=== PATIENT | female | born 1955 | race Caucasian/White ===

== ENCOUNTER → 2017-06-11 | Outpatient (CLI) | payer BC ==
[~2017-06-11] MED LIST: ALBU90AE IH; APIX2.5T PO; CALC600T12 PO; CLON1TAB23 PO; DOXA2TAB2 PO; FLUTICASONE IH; HYDR-309 PO; LOSA100T29 PO; METO25TA6 PO; MULT-1192 PO; TORS20TA4 PO
== END | disposition home or self-care (01) ==
LOC: RAH 10:00
PROVIDERS: ATTEND Physical Medicine & Rehabilitation
DX: M25.561 Pain in right knee (principal)
CPT/HCPCS: 73562

== ENCOUNTER 2017-08-09 07:14 | Observation (INO) | payer BC ==
[2017-08-06 16:04] VITALS: BP 151/58
[2017-08-06 16:19] LABS: BASOPHILS % (AUTO) 0.4 % (0.0-5.0); EOSINOPHILS % (AUTO) 1.5 % (0.0-8.0); HEMATOCRIT 40.4 % (36-48); MEAN CORPUSCULAR HEMOGLOBIN 32.3 pg (27.0-33.0); MEAN CORPUSCULAR HGB CONC 34.4 g/dL (32.0-36.0); MEAN CORPUSCULAR VOLUME 93.9 fL (79-99); MONOCYTES % (AUTO) 10.1 % (3.0-13.0); PLATELET COUNT (AUTO) 270 K/uL (130-400); RED CELL DISTRIBUTION WIDTH 12.5 % (11.0-15.5); WHITE BLOOD COUNT (AUTO) 7.6 K/uL (4.8-10.8)
[2017-08-06 16:24] LABS: APPEARANCE,URINE Clear (CLEAR); BILIRUBIN,URINE Negative (NEGATIVE); COLOR,URINE Yellow (YELLOW); GLUCOSE, URINE (UA) Negative (NEGATIVE); KETONES,URINE Negative (NEGATIVE); LEUKOCYTE ESTERASE ,URINE Negative (NEGATIVE); NITRATE,URINE Negative (NEGATIVE); OCCULT BLOOD,URINE Negative (NEGATIVE); PROTEIN,URINE Negative (NEGATIVE); UROBILINOGEN,URINE 0.2 mg/dL (0.2-1.0)
[2017-08-06 16:26] LABS: CREATININE 0.9 mg/dL (0.5-1.5); POTASSIUM 3.6 mmol/L (3.5-5.1)
[2017-08-06 16:30] LABS: INR 0.92 (0.85-1.15); PARTIAL THROMBOPLASTIN TIME 26.5 SEC (26.3-35.5); PROTHROMBIN TIME 9.7 SEC (9.6-11.6)
[2017-08-09] VITALS (21 sets, daily range): BP systolic 128–160; BP diastolic 50–84
[~2017-08-09] VITALS: Ht 172.7 cm; Wt 86.9 kg
[~2017-08-09 07:14] MED LIST changes: -APIX2.5T PO; -HYDR-309 PO
[2017-08-09] MEDS ORDERED: LACTATED RINGERS 1000ML 1,000 ML IV ONE (07:39)
[2017-08-09] MEDS: CEFAZOLIN SODIUM 1 GM VIAL ONE ×2 (07:49→08:41)
[2017-08-09] MEDS ORDERED: ACETAMINOPHEN EXTRA STRENGTH 500 MG TABLET ONE (08:07)
[2017-08-09] MEDS ORDERED: CELECOXIB 200 MG CAP ONE (08:07)
[2017-08-09] MEDS ORDERED: KETOROLAC TROMETHAMINE 15MG/ML ONE (08:07)
[2017-08-09] MEDS ORDERED: OXYCODONE HCL 10 MG TAB.SR.12H PO ONE (08:08)
[2017-08-09] MEDS ORDERED: CEFAZOLIN SODIUM 1 GM VIAL ONE (08:10)
[2017-08-09] MEDS ORDERED: TRANEXAMIC ACID 1000MG/10ML IV ONE (08:10)
[2017-08-09] MEDS ORDERED: SCOPOLAMINE HYDROBROMIDE 1 EACH ADH..PATCH TD ONE (08:18)
[2017-08-09] MEDS ORDERED: GLYCOPYRROLATE 0.2 MG/ML 5 ML VIAL ONE (08:25)
[2017-08-09] MEDS ORDERED: PROPOFOL 10 MG/ML 20ML VIAL IV ONE (08:25)
[2017-08-09] MEDS ORDERED: LIDOCAINE PF 2% 5ML ABBOJECT ONE (08:25)
[2017-08-09] MEDS ORDERED: DEXAMETHASONE SOD PHOSPHATE 10MG/ML 1ML VIAL ONE (08:25)
[2017-08-09] MEDS ORDERED: MIDAZOLAM HCL 1 MG/ML 2ML VIAL ONE (08:26)
[2017-08-09] MEDS ORDERED: FENTANYL CITRATE PF 50 MCG/1 ML 2ML VIAL ONE (08:26)
[2017-08-09] MEDS ORDERED: ROPIVACAINE 0.5% 5MG/ML 30ML IJ ONE (08:34)
[2017-08-09] MEDS ORDERED: EPINEPHRINE 1 MG/ML AMPULE ONE (08:54)
[2017-08-09] MEDS ORDERED: BUPIVACAINE/PF 0.25% 30ML VIAL IJ ONE (08:55)
[2017-08-09] MEDS ORDERED: CALCIUM CARBONATE 500 MG TABLET PO PRN (10:30)
[2017-08-09] MEDS ORDERED: DiphenhydrAMINE HCL 50 MG/ML VIAL IVP PRN (10:30)
[2017-08-09] MEDS ORDERED: POTASSIUM CHLORIDE 20MEQ/100ML 100 ML IV PRN (10:30)
[2017-08-09] MEDS ORDERED: TRAMADOL HCL 50 MG TABLET PO PRN (10:30)
[2017-08-09] MEDS ORDERED: ONDANSETRON HCL 4 MG/2 ML VIAL IVP PRN (10:30)
[2017-08-09] MEDS ORDERED: POTASSIUM CHLORIDE 20 MEQ ERTAB PO PRN (10:30)
[2017-08-09] MEDS ORDERED: FERROUS FUMARATE 324 MG TABLET PO PRN (10:30)
[2017-08-09] MEDS ORDERED: POTASSIUM CHLORIDE 10% ELIXIR 20 MEQ/15 ML UDCUP PO PRN (10:30)
[2017-08-09] MEDS: ACETAMINOPHEN EXTRA STRENGTH 500 MG TABLET PO SCH ×2 (10:30→18:21)
[2017-08-09] MEDS ORDERED: OXYCODONE HCL 5 MG TAB PO PRN ×2 (10:30)
[2017-08-09] MEDS ORDERED: TEMAZEPAM 15 MG CAPSULE PO PRN (10:30)
[2017-08-09] MEDS ORDERED: LIDOCAINE HCL-MPF 1% 2ML VIAL IVP PRN (10:30)
[2017-08-09] MEDS ORDERED: MORPHINE SULFATE 4 MG/1ML SYG ONE (10:57)
[2017-08-09] MEDS ORDERED: ALBUTEROL SULFATE IH PRN (12:30)
[2017-08-09] MEDS: SODIUM CHLORIDE 0.9% 1000ML 1,000 ML IV SCH ×2 (15:28→23:48)
[2017-08-09] MEDS: CLINDAMYCIN 900 MG/D5% WATER 50 ML IVPB SCH ×2 (16:12→23:48)
[2017-08-09] MEDS ORDERED: ASPIRIN 325 MG TABLET PO SCH (21:00)
[2017-08-09] MEDS ORDERED: CLONAZEPAM 1 MG TABLET PO SCH (21:00)
[2017-08-09] MEDS: PREGABALIN 25 MG CAP PO SCH (21:20)
[2017-08-09] MEDS: METOPROLOL TARTRATE 25 MG TAB PO SCH (21:20)
[2017-08-09] MEDS: FAMOTIDINE 20MG TAB 20 MG TAB PO SCH (21:20)
[2017-08-09] MEDS: FLUTICASONE PROPIONATE 50MCG/SPRAY 16 GM BOTTLE NS SCH (21:21)
[2017-08-10] VITALS: BP 130/57
[2017-08-10] MEDS: ACETAMINOPHEN EXTRA STRENGTH 500 MG TABLET PO SCH ×2 (02:38→10:12)
[2017-08-10 04:00] VITALS: BP 148/74
[2017-08-10] MEDS: SODIUM CHLORIDE 0.9% 1000ML 1,000 ML IV SCH (05:23)
[2017-08-10 05:30] LABS: HEMATOCRIT 34.7 % (36-48); MEAN CORPUSCULAR HEMOGLOBIN 33.9 pg (27.0-33.0); MEAN CORPUSCULAR HGB CONC 35.8 g/dL (32.0-36.0); MEAN CORPUSCULAR VOLUME 94.6 fL (79-99); PLATELET COUNT (AUTO) 216 K/uL (130-400); RED BLOOD CELL COUNT(AUTO) 3.67 MIL/uL (4.00-5.50); RED CELL DISTRIBUTION WIDTH 12.7 % (11.0-15.5); WHITE BLOOD COUNT (AUTO) 10.3 K/uL (4.8-10.8)
[2017-08-10 05:47] LABS: CREATININE 0.8 mg/dL (0.5-1.5); POTASSIUM 4.2 mmol/L (3.5-5.1)
[2017-08-10 07:29] VITALS: BP 154/62
[2017-08-10] MEDS ORDERED: CALCIUM CARBONATE 500 MG TABLET PO SCH (09:00)
[2017-08-10] MEDS ORDERED: LOSARTAN 100 MG TABLET PO SCH (09:00)
[2017-08-10] MEDS ORDERED: MULTIVITAMIN TABLET PO SCH (09:00)
[2017-08-10] MEDS ORDERED: DOXAZOSIN MESYLATE 2 MG TABLET PO SCH (09:00)
[2017-08-10] MEDS ORDERED: TORSEMIDE 20 MG TAB PO SCH (09:00)
[2017-08-10] MEDS ORDERED: POLYETHYLENE GLYCOL 3350 17 GM POWD.PACK PO SCH (09:00)
[2017-08-10] MEDS: FLUTICASONE PROPIONATE 50MCG/SPRAY 16 GM BOTTLE NS SCH (09:05)
[2017-08-10] MEDS: METOPROLOL TARTRATE 25 MG TAB PO SCH (09:05)
[2017-08-10] MEDS: PREGABALIN 25 MG CAP PO SCH (09:05)
[2017-08-10] MEDS: FAMOTIDINE 20MG TAB 20 MG TAB PO SCH (09:05)
[2017-08-10 11:21] VITALS: BP 159/69
[2017-08-10 16:25] VITALS: BP 153/70
[2017-08-10] MEDS ORDERED: APIX2.5T PO (17:08)
[2017-08-10] MEDS ORDERED: HYDR-309 PO (17:08)
[2017-08-10] MEDS ORDERED: APIXABAN 2.5 MG TABLET PO ONE (18:30)
[2017-08-12] MEDS ORDERED: BISACODYL 10 MG SUPP.RECT RC PRN (10:30)
== END 2017-08-10 19:02 | disposition home health service (06) ==
LOC: INTOOBSV 07:14 → DAHIP 07:14 → 4AH 11:46 → EDSTATUS 16:30
PROVIDERS: ADMIT Orthopaedic Surgery; ATTEND Orthopaedic Surgery
DX: M25.461 Effusion, right knee (principal); G89.29 Other chronic pain; I10 Essential (primary) hypertension; M19.90 Unspecified osteoarthritis, unspecified site; Z82.49 Family history of ischemic heart disease and other diseases of the circulatory system; Z80.3 Family history of malignant neoplasm of breast; Z79.899 Other long term (current) drug therapy
CPT/HCPCS: 27486; 36415 ×2; 80048 ×2; 81003; 85025; 85027; 85610; 85730; 88300; 88305; 88312; 96365; 96366; 96375; 97116 ×3; 97161; 97530 ×2; A4218; A4649 ×5; A4930 ×2; A9272; C1763; C1776 ×2; G0378 ×37; G8978; G8979; G8980; G8981; G8982; G8983; J0171; J0690 ×2; J1100; J1885; J2001; J2250; J2270; J2405; J2704; J2795; J3010; J3490 ×5; J7030 ×2; J7120; 96374

== ENCOUNTER 2021-03-24 10:00 | Observation (INO) | payer MEDICARE ==
[~2021-03-24] VITALS: Ht 175.3 cm; Wt 86.3 kg
[~2021-03-24 10:00] MED LIST changes: +CALC-1125 PO; -CALC600T12 PO; -LOSA100T29 PO; +LOSA100T58 PO; -MULT-1192 PO
[2021-03-24 10:39] LABS: APPEARANCE,URINE Clear (CLEAR); BILIRUBIN,URINE Negative (NEGATIVE); COLOR,URINE Yellow (YELLOW); GLUCOSE, URINE (UA) Negative (NEGATIVE); KETONES,URINE Negative (NEGATIVE); LEUKOCYTE ESTERASE ,URINE Negative (NEGATIVE); NITRATE,URINE Negative (NEGATIVE); OCCULT BLOOD,URINE Negative (NEGATIVE); PH,URINE 5.5 (5.0-8.0); PROTEIN,URINE Negative (NEGATIVE)
[2021-03-24 10:45] LABS: BASOPHILS % (AUTO) 0.3 % (0.0-5.0); EOSINOPHILS % (AUTO) 2.5 % (0.0-8.0); HEMATOCRIT 40.5 % (36-48); LYMPHOCYTES % (AUTO) 27.9 % (21.0-51.0); MEAN CORPUSCULAR HEMOGLOBIN 32.7 pg (27.0-33.0); MEAN CORPUSCULAR HGB CONC 35.3 g/dL (32.0-36.0); MEAN CORPUSCULAR VOLUME 92.7 fL (79-99); MONOCYTES % (AUTO) 13.5 % (3.0-13.0); NEUTROPHILS % (AUTO) 55.7 % (40.0-77.0); PLATELET COUNT (AUTO) 242 K/uL (130-400); RED BLOOD CELL COUNT(AUTO) 4.37 MIL/uL (4.00-5.50); RED CELL DISTRIBUTION WIDTH 12.5 % (11.0-15.5); WHITE BLOOD COUNT (AUTO) 7.5 K/uL (4.8-10.8)
[2021-03-24 10:54] LABS: CREATININE 0.9 mg/dL (0.5-1.5); POTASSIUM 3.7 mmol/L (3.5-5.1)
[2021-03-24 10:56] LABS: INR 0.96 (0.85-1.15); PROTHROMBIN TIME 10.5 SEC (9.6-11.6)
[2021-03-25 11:31] VITALS: BP 155/59
[2021-03-25] MEDS ORDERED: CHOL500051 PO (12:29)
[2021-03-25] MEDS ORDERED: CETI10CA5 PO (12:29)
[2021-03-25] MEDS ORDERED: ANAS1TAB49 PO (12:29)
[2021-03-26] VITALS (29 sets, daily range): BP systolic 101–150; BP diastolic 46–70
[2021-03-26] MEDS ORDERED: LACTATED RINGERS 1000ML 1,000 ML IV ONE (06:40)
[2021-03-26] MEDS ORDERED: CEFAZOLIN SODIUM 1 GM VIAL ONE (07:48)
[2021-03-26] MEDS ORDERED: SCOPOLAMINE HYDROBROMIDE 1 EACH ADH..PATCH TD ONE (07:55)
[2021-03-26] MEDS: CEFAZOLIN SODIUM 1 GM VIAL ONE ×2 (08:03→08:57)
[2021-03-26] MEDS ORDERED: TRANEXAMIC ACID 1000MG/10ML ONE ×2 (08:21→10:43)
[2021-03-26] MEDS ORDERED: MIDAZOLAM HCL 1 MG/ML 2ML VIAL ONE (08:25)
[2021-03-26] MEDS ORDERED: SUCCINYLCHOLINE CHLORIDE 20 MG/ML 10 ML VIAL ONE (08:25)
[2021-03-26] MEDS ORDERED: LIDOCAINE PF 100MG/5ML (2%) SYRINGE 5ML ONE (08:25)
[2021-03-26] MEDS ORDERED: PROPOFOL 10 MG/ML 20ML VIAL IV ONE (08:25)
[2021-03-26] MEDS ORDERED: ROCURONIUM 10MG/1ML SYR 10 MG/ML ML ONE (08:25)
[2021-03-26] MEDS ORDERED: FENTANYL CITRATE PF 50 MCG/1 ML 2ML VIAL ONE (08:26)
[2021-03-26] MEDS ORDERED: SCOPOLAMINE HYDROBROMIDE 1 EACH ADH..PATCH TD SCH (08:30)
[2021-03-26] MEDS ORDERED: ROPIVACAINE 0.5% 5MG/ML 30ML IJ ONE (08:40)
[2021-03-26] MEDS ORDERED: DEXAMETHASONE SOD PHOSPHATE 10MG/ML 1ML VIAL ONE (08:41)
[2021-03-26] MEDS ORDERED: CEFAZOLIN SODIUM 3 GM VIAL IV ONE (09:21)
[2021-03-26] MEDS ORDERED: GLYCOPYRROLATE 1 MG/5 ML SYRINGE ONE ×2 (09:31→10:38)
[2021-03-26] MEDS ORDERED: EPHEDRINE SULFATE 50 MG/ML AMPULE ONE (09:32)
[2021-03-26] MEDS: ACETAMINOPHEN 500 MG TABLET PO SCH ×2 (10:30→19:56)
[2021-03-26] MEDS ORDERED: OXYCODONE HCL 5 MG TAB PO PRN ×2 (10:30)
[2021-03-26] MEDS ORDERED: DiphenhydrAMINE HCL 50 MG/ML VIAL IVP PRN (10:30)
[2021-03-26] MEDS ORDERED: KETOROLAC 15MG/ML VIAL (15MG/ML) IV PRN (10:30)
[2021-03-26] MEDS ORDERED: CALCIUM CARB 500MG PO PRN (10:30)
[2021-03-26] MEDS ORDERED: ONDANSETRON 4MG INJ IVP PRN (10:30)
[2021-03-26] MEDS ORDERED: TEMAZEPAM 15 MG CAPSULE PO PRN (10:30)
[2021-03-26] MEDS ORDERED: TRAMADOL HCL 50 MG TABLET PO PRN (10:30)
[2021-03-26] MEDS ORDERED: POTASSIUM CHLORIDE 20MEQ/100ML 100 ML IV PRN (10:30)
[2021-03-26] MEDS ORDERED: POTASSIUM CHLORIDE 10% ELIXIR 20 MEQ/15 ML UDCUP PO PRN (10:30)
[2021-03-26] MEDS ORDERED: LIDOCAINE HCL-MPF 1% 2ML VIAL IV PRN (10:30)
[2021-03-26] MEDS ORDERED: KCL 20 MEQ ERTAB PO PRN (10:30)
[2021-03-26] MEDS ORDERED: 0.9%NACL 1000ML 1,000 ML IV SCH (10:30)
[2021-03-26] MEDS ORDERED: FERROUS FUMARATE 324 MG TABLET PO PRN (10:30)
[2021-03-26] MEDS ORDERED: NEOSTIGMINE 5MG/5ML SYR IV ONE (10:38)
[2021-03-26] MEDS: CLINDAMYCIN IVPB 900MG/50ML 50 ML IV SCH ×2 (16:16→23:45)
[2021-03-26] MEDS ORDERED: CETIRIZINE HCL 5 MG TABLET PO SCH (21:00)
[2021-03-26] MEDS ORDERED: CLONAZEPAM 1MG TAB PO SCH (21:00)
[2021-03-26] MEDS ORDERED: Albuterol Sulfate (Proair Respiclick) IH PRN (21:00)
[2021-03-26] MEDS: PREGABALIN 25 MG CAP PO SCH (21:17)
[2021-03-26] MEDS: ASPIRIN 81 MG EC TAB PO SCH (21:17)
[2021-03-26] MEDS: DOXAZOSIN MESYLATE 2 MG TABLET PO SCH (21:17)
[2021-03-26] MEDS: METOPROLOL TARTRATE 25 MG TAB PO SCH (21:18)
[2021-03-26] MEDS: FAMOTIDINE 20MG TAB PO SCH (21:19)
[2021-03-27 04:27] VITALS: BP 140/55
[2021-03-27] MEDS: ACETAMINOPHEN 500 MG TABLET PO SCH ×2 (04:32→10:57)
[2021-03-27 08:00] VITALS: BP 140/51
[2021-03-27] MEDS: PREGABALIN 25 MG CAP PO SCH (08:33)
[2021-03-27] MEDS: DOXAZOSIN MESYLATE 2 MG TABLET PO SCH (08:33)
[2021-03-27] MEDS: METOPROLOL TARTRATE 25 MG TAB PO SCH (08:34)
[2021-03-27] MEDS: FAMOTIDINE 20MG TAB PO SCH (08:34)
[2021-03-27] MEDS: ASPIRIN 81 MG EC TAB PO SCH (08:35)
[2021-03-27] MEDS ORDERED: (Anastrozole (Arimidex) 1 MG) PO SCH (09:00)
[2021-03-27] MEDS ORDERED: TORSEMIDE 20 MG TAB PO SCH (09:00)
[2021-03-27] MEDS ORDERED: POLYETHYLENE GLYCOL 3350 17 GM POWD.PACK PO SCH (09:00)
[2021-03-27] MEDS ORDERED: CALCIUM CARBONATE 1200 MG PO SCH (09:00)
[2021-03-27] MEDS ORDERED: LOSARTAN 100 MG TABLET PO SCH (09:00)
[2021-03-27 12:00] VITALS: BP 116/40
[2021-03-27] MEDS ORDERED: AEC81 PO (17:09)
[2021-03-27] MEDS ORDERED: HYDR-4060 PO (17:09)
[2021-03-29] MEDS ORDERED: BISACODYL 10 MG SUPP.RECT RC PRN (10:30)
== END 2021-03-27 17:55 | disposition home or self-care (01) ==
LOC: OBSVTOIN 03-26 06:11 → INTOOBSV 03-26 06:11 → DAHIP 03-26 06:11 → 4AH 03-26 11:41
PROVIDERS: ADMIT Orthopaedic Surgery; ATTEND Orthopaedic Surgery
DX: T84.84XA Pain due to internal orthopedic prosthetic devices, implants and grafts, initial encounter (principal); Z20.822 Contact with and (suspected) exposure to COVID-19; M25.561 Pain in right knee; M25.562 Pain in left knee; I10 Essential (primary) hypertension; Y83.8 Other surgical procedures as the cause of abnormal reaction of the patient, or of later complication, without mention of misadventure at the time of the procedure; Z96.651 Presence of right artificial knee joint; Z85.3 Personal history of malignant neoplasm of breast; Z79.899 Other long term (current) drug therapy
CPT/HCPCS: 36415; 64447; 76942; 80048; 81003; 85025; 85610; 87077; 87088; 87186; 87635; 87641; 93005; 96365; 96366; 97039; G0378; G0379; J0330; J0690; J1100; J2001; J2250; J2704; J2710; J2795; J3010; J3490; J7120